=== PATIENT | female | born 1970 | race Caucasian/White ===

== ENCOUNTER 2022-05-23 20:27 | Emergency (ER) | payer OTHER ==
[~2022-05-23] VITALS: Ht 157.5 cm; Wt 61.4 kg
[~2022-05-23 20:27] MED LIST: NO MEDS
[2022-05-23] MEDS ORDERED: DEXAMETHASONE SOD PHOS 4 MG/ML 5 ML VIAL IM ONE (21:15)
[2022-05-23] MEDS ORDERED: CYCLOBENZAPRINE HCL 10 MG TABLET PO ONE (21:15)
[2022-05-23] MEDS ORDERED: METH4TAB3 PO (21:38)
[2022-05-23] MEDS ORDERED: CYCL-397 PO (21:38)
[2022-05-23] MEDS ORDERED: LIDOCAINE 5% TRANSDERMAL PATCH TD ONE (22:00)
[2022-05-23 22:29] VITALS: BP 139/87
== END 2022-05-23 22:31 | disposition home or self-care (01) ==
LOC: EMS 20:32
DX: M54.50 Low back pain, unspecified (principal); Z88.0 Allergy status to penicillin; Z88.8 Allergy status to other drugs, medicaments and biological substances
CPT/HCPCS: 99283; 96372; J1100

== ENCOUNTER 2022-08-19 17:43 | Emergency (ER) | payer OTHER ==
[~2022-08-19] VITALS: Ht 160 cm; Wt 63.6 kg
[~2022-08-19 17:43] MED LIST changes: +CYCL-397 PO; +METH4TAB3 PO; -NO MEDS
[2022-08-19 17:44] VITALS: BP 118/71
[2022-08-19 18:32] LABS: COVID AG,FIA SOURCE NASOPHARYNGEAL
[2022-08-19 18:53] LABS: RAPID GROUP A STREP NEGATIVE (NEGATIVE)
[2022-08-19 19:04] LABS: INFLUENZA TYPE A NEGATIVE FOR TYPE A (NEGATIVE); INFLUENZA TYPE B NEGATIVE FOR TYPE B (NEGATIVE)
== END 2022-08-19 23:00 | disposition left against medical advice (07) ==
LOC: EMS 17:43
DX: J02.9 Acute pharyngitis, unspecified (principal); R09.89 Other specified symptoms and signs involving the circulatory and respiratory systems; Z53.21 Procedure and treatment not carried out due to patient leaving prior to being seen by health care provider; Z20.822 Contact with and (suspected) exposure to COVID-19
CPT/HCPCS: 87430; 87804